=== PATIENT | male | born 1955 | race Caucasian/White ===

== ENCOUNTER 2016-08-14 15:35 | Emergency (ER) | payer BC ==
[~2016-08-14] VITALS: Ht 188 cm; Wt 127.0 kg
[2016-08-14] MEDS ORDERED: AMITRIPTYLINE H10 MG (15:52)
[2016-08-14] MEDS ORDERED: NEURONTIN600 MG PO (15:52)
[2016-08-14] MEDS ORDERED: TRILEPTAL300 MG PO (15:52)
[2016-08-14] MEDS ORDERED: PERCOCET1 TA5 PO (15:52)
[2016-08-14] MEDS ORDERED: BACLOFEN20 MG PO (15:53)
[2016-08-14 16:27] LABS: BASOPHIL % 0.4 % (0-2); PLATELET COUNT 302 x10^3mcL (130-400); RED CELL DISTRIBUTION WIDTH 13.7 % (11.5-14.5)
[2016-08-14 16:40] LABS: CALCIUM 8.9 mg/dL (8.5-10.1); CARBON DIOXIDE 25.9 mmol/L (21-32); CHLORIDE SERUM 102 mmol/L (98-107); CREATININE SERUM 0.8 mg/dL (0.7-1.3); GFR1 > 60 mL/min; GLUCOSE SERUM 138 mg/dL (74-106); POTASSIUM SERUM 3.5 mmol/L (3.5-5.1); SODIUM SERUM 136 mmol/L (136-145)
[2016-08-14 16:47] LABS: ALBUMIN 3.6 g/dL (3.4-5.0); ALKALINE PHOSPHATASE 73 U/L (46-116); ALT/SGPT 19 U/L (16-63); AST/SGOT 12 U/L (15-37); BILIRUBIN TOTAL 0.4 mg/dL (0.20-1.00); TOTAL PROTEIN, SERUM 7.2 g/dL (6.4-8.2)
[2016-08-14 17:26] VITALS: BP 140/76
== END 2016-08-14 17:26 | disposition left against medical advice (07) ==
LOC: ED 15:35
DX: R07.89 Other chest pain (principal); E11.40 Type 2 diabetes mellitus with diabetic neuropathy, unspecified
CPT/HCPCS: 83880; J2270; J2405; Q0092